=== PATIENT | male | born 1935 | race African-American/Black ===

== ENCOUNTER 2017-03-09 00:21 | Emergency (ER) | payer OTHER ==
[~2017-03-09] VITALS: Ht 172.7 cm; Wt 86.2 kg
[2017-03-09] MEDS ORDERED: NORVASC10 MG PO (00:31)
[2017-03-09] MEDS ORDERED: CLONIDINE0.1 PO (01:46)
[2017-03-09 02:21] VITALS: BP 159/82
== END 2017-03-09 02:22 | disposition home or self-care (01) ==
LOC: ER 00:21
DX: I10 Essential (primary) hypertension (principal); K59.00 Constipation, unspecified

== ENCOUNTER 2017-03-20 18:50 | Emergency (ER) | payer OTHER ==
[~2017-03-20] VITALS: Ht 172.7 cm; Wt 89.4 kg
--- NOTE | ~2017-03-20 | EKG ---
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1935 Requested By: Elio Tompkins Order Number: [id number] MD: Luis Larios Measurements Intervals [place] Rate: 78 P: 54 WV: 145 QRS: -5 QRSD: 98 T: -22 QT: 380 QTc: 433 Interpretive Statements Sinus rhythm Left ventricular hypertrophy Borderline T abnormalities No previous ECG available for comparison Electronically Signed On 03-21-2017 8:11:43 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
[~2017-03-20 18:50] MED LIST: CLONIDINE0.1 PO; NORVASC10 MG PO
[2017-03-20 18:56] VITALS: BP 124/73
[2017-03-20 19:36] LABS: HEMATOCRIT 37.9 % (42.0-52.0); HEMOGLOBIN 12.6 gm/dL (14.0-18.0); MCH 29.4 pg (26.0-34.0); MCHC 33.2 g/dL (28.0-37.0); MCV 88.7 fL (80.0-100.0); RBC 4.27 mil/uL (4.50-6.00); RDW 14.9 % (10.5-14.5); WBC 6.1 thou/uL (4.0-11.0)
[2017-03-20 19:42] LABS: ANION GAP 6 mmol/L (7-16); BUN 15 mg/dL (7-18); CALCIUM 9.4 mg/dL (8.5-10.1); CHLORIDE 106 mmol/L (98-107); CO2 30 mmol/L (21-32); CREATININE 1.7 mg/dL (0.7-1.3); GLUCOSE 135 mg/dL (74-106); POTASSIUM 3.7 mmol/L (3.5-5.1); SODIUM 142 mmol/L (136-145)
[2017-03-20 19:51] LABS: TROPONIN-I < 0.04 ng/mL (<0.06)
[2017-03-20] MEDS ORDERED: VENTOLIN HFA 1818 GM INH (20:05)
[2017-03-20] MEDS ORDERED: PROMETHAZINE/C118 ML PO (20:05)
== END 2017-03-20 20:13 | disposition home or self-care (01) ==
LOC: ER 18:50
PROVIDERS: Physician Assistant
DX: J20.8 Acute bronchitis due to other specified organisms (principal); B97.89 Other viral agents as the cause of diseases classified elsewhere; I10 Essential (primary) hypertension

== ENCOUNTER 2017-04-12 14:13 | Inpatient (IN) | payer OTHER ==
[~2017-04-12] VITALS: Ht 172.7 cm; Wt 88.5 kg
[~2017-04-12 14:13] MED LIST changes: +PROMETHAZINE/C118 ML PO; +VENTOLIN HFA 1818 GM INH
[2017-04-12 14:18] VITALS: BP 161/79
[2017-04-12 15:00] LABS: ABSOLUTE NEUTROPHILS 17.2 thou/uL (1.4-8.2); BASOPHILS 0.2 % (0.0-2.0); HEMATOCRIT 38.7 % (42.0-52.0); HEMOGLOBIN 12.7 gm/dL (14.0-18.0); MCHC 32.8 g/dL (28.0-37.0); MCV 88.5 fL (80.0-100.0); MONOCYTES 1.7 % (1.0-8.0); PLATELET COUNT 200 thou/uL (150-400); POLYS 95.1 % (36.0-66.0); RBC 4.38 mil/uL (4.50-6.00); RDW 15.1 % (10.5-14.5); WBC 18.1 thou/uL (4.0-11.0)
[2017-04-12 15:15] LABS: CALCIUM 9.6 mg/dL (8.5-10.1); CREATININE 1.8 mg/dL (0.7-1.3); POTASSIUM 3.8 mmol/L (3.5-5.1)
[2017-04-12 15:20] LABS: ALBUMIN 3.4 g/dL (3.4-5.0); TOTAL BILIRUBIN 0.4 mg/dL (<0.1-1.0); TOTAL PROTEIN 7.5 g/dL (6.4-8.2)
[2017-04-12] MEDS ORDERED: ZOCOR20 MG PO (15:21)
[2017-04-12] MEDS ORDERED: OMEPRAZOLE 20 M20 M1 PO (15:21)
[2017-04-12] MEDS ORDERED: AMLODIPINE BESY10 MG PO (15:21)
[2017-04-12 15:33] LABS: URINE BILIRUBIN 1+ (Negative); URINE BLOOD NEGATIVE (Negative); URINE CLARITY CLEAR; URINE COLOR YELLOW; URINE GLUCOSE-RANDOM* NEGATIVE (Negative); URINE KETONES NEGATIVE (Negative); URINE LEUKOCYTES NEGATIVE (Negative); URINE NITRITE NEGATIVE (Negative); URINE PROTEIN (DIPSTICK) TRACE (Negative); URINE SPECIFIC GRAVITY 1.015 (1.005-1.035)
[2017-04-12 15:37] LABS: ICTOTEST (BILI CONFIRMATORY) Negative (Negative)
[2017-04-12] MEDS ORDERED: ASPIR 8181 M1 PO (16:35)
[2017-04-12] MEDS ORDERED: DOXAZOSIN MESYLA8 MG PO (16:35)
[2017-04-12 17:09] VITALS: BP 150/86
[2017-04-12 17:26] VITALS: BP 160/80
[2017-04-12 20:00] VITALS: BP 175/88
[2017-04-13 00:12] VITALS: BP 150/80
[2017-04-13 04:00] VITALS: BP 132/70
[2017-04-13 06:43] LABS: BASOPHILS 0.3 % (0.0-2.0); EOSINOPHILS 1.1 % (0.0-3.0); HEMATOCRIT 33.7 % (42.0-52.0); HEMOGLOBIN 11.2 gm/dL (14.0-18.0); LYMPHOCYTES 14.5 % (24.0-44.0); MCH 29.4 pg (26.0-34.0); MCHC 33.3 g/dL (28.0-37.0); MCV 88.3 fL (80.0-100.0); MONOCYTES 6.7 % (1.0-8.0); PLATELET COUNT 174 thou/uL (150-400); POLYS 77.4 % (36.0-66.0); RBC 3.82 mil/uL (4.50-6.00); WBC 12.9 thou/uL (4.0-11.0)
[2017-04-13 06:53] LABS: CALCIUM 8.3 mg/dL (8.5-10.1); CREATININE 1.6 mg/dL (0.7-1.3); MAGNESIUM 1.9 mg/dL (1.8-2.4); POTASSIUM 3.5 mmol/L (3.5-5.1)
[2017-04-13 07:40] VITALS: BP 123/65
[2017-04-13 14:11] LABS: PSA TOTAL 20.4 ng/mL (0.0-4.0)
[2017-04-13 21:21] VITALS: BP 135/84
[2017-04-14 00:05] LABS: GLYCOHEMOGLOBIN (HGB A1C) 5.1 % (4.8-5.6)
[2017-04-14 05:47] VITALS: BP 133/86
[2017-04-14 06:44] LABS: ABSOLUTE NEUTROPHILS 5.4 thou/uL (1.4-8.2); BASOPHILS 0.6 % (0.0-2.0); HEMATOCRIT 34.1 % (42.0-52.0); HEMOGLOBIN 11.5 gm/dL (14.0-18.0); LYMPHOCYTES 22.8 % (24.0-44.0); MCH 29.7 pg (26.0-34.0); MCHC 33.8 g/dL (28.0-37.0); MCV 87.8 fL (80.0-100.0); MONOCYTES 6.4 % (1.0-8.0); PLATELET COUNT 179 thou/uL (150-400); POLYS 67.2 % (36.0-66.0); RBC 3.88 mil/uL (4.50-6.00); RDW 14.8 % (10.5-14.5); WBC 8.1 thou/uL (4.0-11.0)
[2017-04-14 06:58] LABS: CALCIUM 8.8 mg/dL (8.5-10.1); CREATININE 1.5 mg/dL (0.7-1.3); POTASSIUM 3.3 mmol/L (3.5-5.1)
[2017-04-14] MEDS ORDERED: CIPRO500 MG PO (09:17)
[2017-04-14 09:18] VITALS: BP 146/76
[2017-04-14 09:34] VITALS: BP 146/76
[2017-04-14 10:16] VITALS: BP 146/76
[2017-04-15 12:06] LABS: FREE PSA 1.2 ng/mL; FREE PSA RATIO 5.9 % (())
== END 2017-04-14 10:50 | disposition home or self-care (01) | DRG 871 ==
LOC: ER 14:13 → EROBS 16:10 → 4N 17:15
PROVIDERS: Family Medicine; Nurse Practitioner; Nurse Practitioner Family
DX: A41.9 Sepsis, unspecified organism (principal); N17.1 Acute kidney failure with acute cortical necrosis; N41.9 Inflammatory disease of prostate, unspecified; N40.1 Benign prostatic hyperplasia with lower urinary tract symptoms; N18.9 Chronic kidney disease, unspecified; E78.00 Pure hypercholesterolemia, unspecified; I12.9 Hypertensive chronic kidney disease with stage 1 through stage 4 chronic kidney disease, or unspecified chronic kidney disease; Z79.82 Long term (current) use of aspirin; Z79.899 Other long term (current) drug therapy
CPT/HCPCS: 10790

== ENCOUNTER 2017-05-30 14:06 | Inpatient (IN) | payer OTHER ==
[~2017-05-30] VITALS: Ht 170.2 cm; Wt 86.2 kg
--- NOTE | ~2017-05-30 | EKG ---
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1935 Requested By: Elio Tompkins Order Number: [id number] MD: Luis Larios Measurements Intervals [place] Rate: 75 P: 36 UT: 150 QRS: 9 QRSD: 95 T: -20 QT: 396 QTc: 443 Interpretive Statements Sinus rhythm Nonspecific T abnormalities, inferior leads Compared to ECG 03/20/2017 19:17:13 No significant change was found Electronically Signed On 05-30-2017 17:36:55 CDT by Luis Larios [email or web address] <ELECTRONICALLY SIGNED> By: Luis Larios MD, [facility] 05/30/17 1736 1504 1504 Luis Larios MD, [facility] /EPI
--- NOTE | ~2017-05-30 | 2DMMODE ---
[facility] [address] [place] [address] 2 D/M-MODE ECHOCARDIOGRAM Name: NIDA ARANA Room #: 220-P ADM IN M.R.#: [id number] Admission: 05/30/17 Attend Phys: Elias Lovelace Discharge: Date of : 39 Date of Service: 06/03/17 0914 Report #: [id number] THIS REPORT FOR: //name// APPROVED REPORT Study performed: 06/03/2017 08:15:54 EXAM: Comprehensive 2D, Doppler, and color-flow Echocardiogram Patient Location: Echo lab Room #: 220 Status: routine BSA: 1.97 HR: 80 bpm BP: 134/77 mmHg Rhythm: NSR/PVCs Other Information Study Quality: Adequate Indications Exertional dyspnea. Hx: HTN, HLP 2D Dimensions RVDd: 37.62 mm LVEF(%): 47.16 (>50%) IVSd: 11.54 (7-11mm) LVOT Diam: 20.62 (18-24mm) LVDd: 45.66 mm PWd: 12.15 (7-11mm) Ascending Ao: 32.22 (22-36mm) LVDs: 34.90 (25-40mm) Aortic Root: 34.66 mm Pollack's LVEF: 47.16 % Volumes Left Atrial Volume (Systole) Single Plane 4CH: 47.38 mL Single Plane 2CH: 41.53 mL LA ESV Index: 25.00 mL/m2 Aortic Valve AoV Peak Delgado.: 1.23 m/s AO Peak Gr.: 6.09 mmHg LVOT Max P.01 mmHg LVOT Max V: 0.87 m/s KARLA Vmax: 2.35 cm2 Mitral Valve E/A Ratio: 0.7 MV Decel. Time: 231.46 ms [facility] [place] [address] 2 D/M-MODE ECHOCARDIOGRAM Name: NIDA ARANA Room #: 220-P [facility] IN .R.#: [id number] Admission: 05/30/17 Attend Phys: Elias Lovelace Discharge: Date of : 39 Date of Service: 06/03/17 0914 Report #: [id number] MV E Max Delgado.: 0.68 m/s MV A Delgado.: 1.01 m/s MV PHT: 67.12 ms IVRT: 115.34 ms Pulmonary Valve PV Peak Delgado.: 0.95 m/s PV Peak Gr.: 3.62 mmHg Pulmonary Vein P Vein S: 0.54 m/s P Vein D: 0.34 m/s P Vein S/D Ratio: 1.59 Tricuspid Valve TR Peak Delgado.: 2.54 m/s RAP Estimate: 5.00 mmHg TR Peak Gr.: 25.73 mmHg PA Pressure: 31.00 mmHg Left Ventricle The left ventricle is normal size. There is normal LV segmental wall motion. Mild concentric left ventricular hypertrophy. Left ventricular systolic function is normal. LVEF is 50-55%. Mild diastolic dysfunction is present (impaired relaxation pattern). Right Ventricle The right ventricle is normal size. The right ventricular systolic function is normal. Atria The left atrium size is normal. The right atrium size is normal. Aortic Valve The aortic valve is normal in structure. No aortic regurgitation is present. There is no aortic valvular stenosis. Mitral Valve The mitral valve is normal in structure. Mild mitral regurgitation. No evidence of mitral valve stenosis. Tricuspid Valve The tricuspid valve is normal in structure. Mild tricuspid regurgitation. Estimated PAP is 30-35mmHg. Pulmonic Valve [address] [address] 2 D/M-MODE ECHOCARDIOGRAM Name: NIDA ARANA Room #: 220-P [facility] IN M.R.#: [id number] Admission: 05/30/17 Attend Phys: Elias Lovelace Discharge: Date of : 39 Date of Service: 06/03/17 0914 Report #: [id number] The pulmonary valve is normal in structure. Mild to moderate pulmonic regurgitation. Great Vessels The aortic root is normal in size. The ascending aorta is normal in size. IVC is normal in size and collapses >50% with inspiration. Pericardium There is no pericardial effusion. <Conclusion> Left ventricular systolic function is normal. There is normal LV segmental wall motion. LVEF is 50-55%. Mild diastolic dysfunction The aortic valve is normal in structure. No aortic regurgitation or stenosis The mitral valve is normal in structure. Mild mitral regurgitation. Mild tricuspid regurgitation. Estimated pulmonary artery pressure is 30-35mmHg. There is no pericardial effusion. <ELECTRONICALLY SIGNED> By: Luis Larios MD, FACC 06/03/17913 3 3 Luis Larios MD, FACC /INF
[~2017-05-30 14:06] MED LIST changes: +AMLODIPINE BESY10 MG PO; +ASPIR 8181 M1 PO; +CIPRO500 MG PO; +DOXAZOSIN MESYLA8 MG PO; +OMEPRAZOLE 20 M20 M1 PO; +ZOCOR20 MG PO
[2017-05-30 14:50] VITALS: BP 149/86
[2017-05-30 15:23] LABS: ABSOLUTE NEUTROPHILS 5.2 thou/uL (1.4-8.2); BASOPHILS 0.4 % (0.0-2.0); EOSINOPHILS 1.8 % (0.0-3.0); HEMATOCRIT 33.5 % (42.0-52.0); HEMOGLOBIN 11.2 gm/dL (14.0-18.0); LYMPHOCYTES 17.5 % (24.0-44.0); MCH 29.7 pg (26.0-34.0); MCHC 33.4 g/dL (28.0-37.0); MCV 88.9 fL (80.0-100.0); MONOCYTES 6.1 % (1.0-8.0); PLATELET COUNT 179 thou/uL (150-400); POLYS 74.2 % (36.0-66.0); RBC 3.77 mil/uL (4.50-6.00); RDW 14.7 % (10.5-14.5); WBC 7.1 thou/uL (4.0-11.0)
[2017-05-30 15:30] LABS: ANION GAP 6 mmol/L (7-16); BUN 20 mg/dL (7-18); CALCIUM 9.5 mg/dL (8.5-10.1); CHLORIDE 106 mmol/L (98-107); CO2 29 mmol/L (21-32); CREATININE 1.6 mg/dL (0.7-1.3); GLUCOSE 107 mg/dL (74-106); POTASSIUM 4.5 mmol/L (3.5-5.1); SODIUM 141 mmol/L (136-145)
[2017-05-30 15:39] LABS: URINE BILIRUBIN NEGATIVE (Negative); URINE BLOOD NEGATIVE (Negative); URINE CLARITY CLEAR; URINE COLOR YELLOW; URINE GLUCOSE-RANDOM* NEGATIVE (Negative); URINE KETONES NEGATIVE (Negative); URINE LEUKOCYTES NEGATIVE (Negative); URINE NITRITE NEGATIVE (Negative); URINE PROTEIN (DIPSTICK) NEGATIVE (Negative); URINE SPECIFIC GRAVITY 1.015 (1.005-1.035); URINE UROBILINOGEN 0.2 E.U./dl (0.2-1.0)
[2017-05-30 15:39] LABS: ALBUMIN 3.2 g/dL (3.4-5.0); LIPASE 68 U/L (73-393); SGOT 16 U/L (15-37); SGPT 19 U/L (30-65); TOTAL BILIRUBIN 0.2 mg/dL (<0.1-1.0); TROPONIN-I < 0.04 ng/mL (<0.06)
[2017-05-30 17:44] VITALS: BP 149/86
[2017-05-30 21:38] VITALS: BP 161/68
[2017-05-30 22:01] VITALS: BP 149/84
[2017-05-31 00:19] VITALS: BP 144/83
[2017-05-31 04:20] VITALS: BP 134/72
[2017-05-31 05:56] LABS: HEMATOCRIT 30.8 % (42.0-52.0); HEMOGLOBIN 10.4 gm/dL (14.0-18.0); MCH 30.2 pg (26.0-34.0); MCHC 33.9 g/dL (28.0-37.0); MCV 89.1 fL (80.0-100.0); RBC 3.46 mil/uL (4.50-6.00); WBC 7.3 thou/uL (4.0-11.0)
[2017-05-31 06:13] LABS: ALBUMIN 2.8 g/dL (3.4-5.0); CALCIUM 9.1 mg/dL (8.5-10.1); CREATININE 1.6 mg/dL (0.7-1.3); PHOSPHORUS 3.5 mg/dL (2.5-4.9); POTASSIUM 3.9 mmol/L (3.5-5.1)
[2017-05-31 07:11] VITALS: BP 120/69
[2017-05-31 19:25] VITALS: BP 153/77
[2017-06-01 03:37] VITALS: BP 143/77
[2017-06-01 07:04] VITALS: BP 144/77
[2017-06-01 11:33] LABS: CHOLESTEROL 153 mg/dL (<200); HDL CHOLESTEROL 66 mg/dL (>40); LDL CHOLESTEROL 78 mg/dL (<100); SERUM ASSESSMENT Clear; TC:HDL 2.3 Ratio (Not establshd); TRIGLYCERIDE 47 mg/dL (<150); VLDL 9 mg/dL (<40)
[2017-06-01 16:10] VITALS: BP 122/77
[2017-06-01 20:00] VITALS: BP 117/67
[2017-06-02 07:05] VITALS: BP 130/78
[2017-06-02 09:07] LABS: ALBUMIN 3.1 g/dL (3.4-5.0); CALCIUM 9.3 mg/dL (8.5-10.1); CREATININE 1.9 mg/dL (0.7-1.3); PHOSPHORUS 3.8 mg/dL (2.5-4.9); POTASSIUM 3.8 mmol/L (3.5-5.1)
[2017-06-02 20:00] VITALS: BP 134/77
[2017-06-03 08:57] VITALS: BP 116/73
[2017-06-03] MEDS ORDERED: CIPRO500 MG PO (10:19)
[2017-06-03] MEDS ORDERED: FLAGYL500 MG PO (10:19)
[2017-06-03] MEDS ORDERED: TOPROL XL25 MG PO (10:20)
[2017-06-03 11:41] VITALS: BP 116/73
== END 2017-06-03 12:26 | disposition home or self-care (01) | DRG 377 ==
LOC: ER 14:06 → EROBS 16:57 → 4E 16:57 → SICU 06-01 16:00 → ENTRNSPT 06-03 12:08 → EDTRNSPTSTS 06-03 12:09 → SICU 06-03 12:26
PROVIDERS: Hospitalist; Physician Assistant
DX: K57.93 Diverticulitis of intestine, part unspecified, without perforation or abscess with bleeding (principal); E43 Unspecified severe protein-calorie malnutrition; I50.30 Unspecified diastolic (congestive) heart failure; E78.00 Pure hypercholesterolemia, unspecified; K52.9 Noninfective gastroenteritis and colitis, unspecified; I11.0 Hypertensive heart disease with heart failure; N40.0 Benign prostatic hyperplasia without lower urinary tract symptoms; N18.9 Chronic kidney disease, unspecified; Z79.82 Long term (current) use of aspirin; Z79.899 Other long term (current) drug therapy
CPT/HCPCS: 10084; 15002

== ENCOUNTER 2017-06-03 15:45 | Inpatient (IN) | payer OTHER ==
[~2017-06-03] VITALS: Ht 170.2 cm; Wt 86.6 kg
--- NOTE | ~2017-06-03 | EKG ---
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 06/04/17 0905 1548 1548 Luis Larios MD, [facility] /EPI
[~2017-06-03 15:45] MED LIST changes: +FLAGYL500 MG PO; +TOPROL XL25 MG PO
[2017-06-03 15:53] VITALS: BP 136/88
[2017-06-03 16:10] LABS: ABSOLUTE NEUTROPHILS 5.2 thou/uL (1.4-8.2); BASOPHILS 0.3 % (0.0-2.0); EOSINOPHILS 1.9 % (0.0-3.0); HEMATOCRIT 31.8 % (42.0-52.0); HEMOGLOBIN 10.6 gm/dL (14.0-18.0); LYMPHOCYTES 20.8 % (24.0-44.0); MCH 29.6 pg (26.0-34.0); MCHC 33.4 g/dL (28.0-37.0); MCV 88.6 fL (80.0-100.0); PLATELET COUNT 155 thou/uL (150-400); RBC 3.59 mil/uL (4.50-6.00); RDW 14.7 % (10.5-14.5); WBC 7.5 thou/uL (4.0-11.0)
[2017-06-03 16:15] LABS: ANION GAP 10 mmol/L (7-16); BUN 19 mg/dL (7-18); CALCIUM 9.2 mg/dL (8.5-10.1); CHLORIDE 107 mmol/L (98-107); CO2 25 mmol/L (21-32); CREATININE 1.9 mg/dL (0.7-1.3); GLUCOSE 135 mg/dL (74-106); POTASSIUM 3.9 mmol/L (3.5-5.1); SODIUM 142 mmol/L (136-145)
[2017-06-03 16:24] LABS: TROPONIN-I < 0.04 ng/mL (<0.06)
[2017-06-03 16:25] LABS: INR 1.2; PROTIME 11.5 Seconds (9.3-11.4)
[2017-06-03 16:43] LABS: D-DIMER 14.44 ug/mLFEU (0.19-0.50)
[2017-06-03 20:47] VITALS: BP 150/88
[2017-06-03 22:36] VITALS: BP 159/89
[2017-06-03 23:02] VITALS: BP 150/89
[2017-06-04] VITALS (7 sets, daily range): BP systolic 115–149; BP diastolic 75–92
[2017-06-05] VITALS (8 sets, daily range): BP systolic 86–150; BP diastolic 52–85
[2017-06-05 04:03] LABS: HEMATOCRIT 30.2 % (42.0-52.0); HEMOGLOBIN 10.2 gm/dL (14.0-18.0); MCH 30.3 pg (26.0-34.0); MCHC 33.8 g/dL (28.0-37.0); MCV 89.6 fL (80.0-100.0); RBC 3.37 mil/uL (4.50-6.00); RDW 15.1 % (10.5-14.5); WBC 7.1 thou/uL (4.0-11.0)
[2017-06-06 04:34] LABS: HEMATOCRIT 32.1 % (42.0-52.0); HEMOGLOBIN 10.7 gm/dL (14.0-18.0); MCH 29.9 pg (26.0-34.0); MCHC 33.5 g/dL (28.0-37.0); MCV 89.3 fL (80.0-100.0); RBC 3.59 mil/uL (4.50-6.00); RDW 15.1 % (10.5-14.5); WBC 6.8 thou/uL (4.0-11.0)
[2017-06-06 05:31] VITALS: BP 154/91
[2017-06-06 08:02] VITALS: BP 147/88
[2017-06-06 12:15] VITALS: BP 128/81; BP 133/86
[2017-06-06 12:16] VITALS: BP 92/60
[2017-06-06 16:14] VITALS: BP 144/89
[2017-06-06 19:56] VITALS: BP 135/87
[2017-06-07 04:46] VITALS: BP 128/81
[2017-06-07 05:00] LABS: HEMATOCRIT 31.3 % (42.0-52.0); HEMOGLOBIN 10.5 gm/dL (14.0-18.0); MCH 29.9 pg (26.0-34.0); MCHC 33.5 g/dL (28.0-37.0); MCV 89.3 fL (80.0-100.0); RBC 3.5 mil/uL (4.50-6.00); RDW 14.8 % (10.5-14.5); WBC 6.7 thou/uL (4.0-11.0)
[2017-06-07 08:00] VITALS: BP 146/82
[2017-06-07] MEDS ORDERED: ELIQUIS5 MG PO (08:04)
[2017-06-07 11:00] VITALS: BP 135/76
[2017-06-07 14:23] LABS: POTASSIUM 4.2 mmol/L (3.5-5.1)
[2017-06-07 16:00] VITALS: BP 127/80
[2017-06-07 19:55] VITALS: BP 120/61
[2017-06-08 04:36] VITALS: BP 124/67
[2017-06-08 09:06] VITALS: BP 131/72
[2017-06-08 12:37] VITALS: BP 110/64
[2017-06-08 19:45] VITALS: BP 123/59
[2017-06-09 04:25] VITALS: BP 114/61
[2017-06-09 07:26] VITALS: BP 113/66
[2017-06-09 12:03] VITALS: BP 109/61
[2017-06-09 15:21] VITALS: BP 122/66
[2017-06-09 20:10] VITALS: BP 112/68
[2017-06-10 05:15] VITALS: BP 133/78
[2017-06-10 08:18] VITALS: BP 126/69
[2017-06-10 11:15] VITALS: BP 126/69
[2017-06-10 17:27] VITALS: BP 126/69
[2017-06-10 18:13] VITALS: BP 141/68
== END 2017-06-10 18:55 | disposition home or self-care (01) | DRG 175 ==
LOC: ER 15:45 → EROBS 20:06 → 2N 20:06
PROVIDERS: Emergency Medicine; Hospitalist
DX: I26.99 Other pulmonary embolism without acute cor pulmonale (principal); K57.93 Diverticulitis of intestine, part unspecified, without perforation or abscess with bleeding; I47.2 Ventricular tachycardia; E78.00 Pure hypercholesterolemia, unspecified; I12.9 Hypertensive chronic kidney disease with stage 1 through stage 4 chronic kidney disease, or unspecified chronic kidney disease; N40.0 Benign prostatic hyperplasia without lower urinary tract symptoms; N28.1 Cyst of kidney, acquired; E78.5 Hyperlipidemia, unspecified; N18.3 Chronic kidney disease, stage 3 (moderate); D64.9 Anemia, unspecified; Z79.82 Long term (current) use of aspirin; Z79.899 Other long term (current) drug therapy; Z85.46 Personal history of malignant neoplasm of prostate
CPT/HCPCS: 10081

== ENCOUNTER 2017-06-25 20:26 | Inpatient (IN) | payer OTHER ==
[~2017-06-25] VITALS: Ht 172.7 cm; Wt 84.8 kg
--- NOTE | ~2017-06-25 | P ---
[facility] [place] [address] PROCEDURE REPORT Name: NIDA ARANA Room #: 406-P [facility] IN M.R.#: [id number] Admission: 06/25/17 Attend Phys: Blayne Almodovar MD Discharge: Date of : 37 Report #: [id number] THIS REPORT FOR: //name// CC: Juan C Hays BRIEF HISTORY: The patient is an 82-year-old male who has had rectal bleeding, which has worsened since he started Eliquis. PREOPERATIVE DIAGNOSIS: Rectal bleeding. POSTOPERATIVE DIAGNOSES: 1. Malignant appearing mass lesion, distal descending colon at 50 cm. 2. Small rectal polyp. MEDICATIONS: Deep sedation with propofol per Anesthesia. SPECIMEN: 1. Biopsies of rectal mass. 2. Rectal polyp. ESTIMATED BLOOD LOSS: 3 mL. PROCEDURE: Colonoscopy to the distal descending colon with biopsy and injection of Nancy ink. FINDINGS: Prior to propofol sedation, procedure of colonoscopy discussed with the patient as well as potential risks and its complications. He indicates he understands and desires to proceed. With the patient in the left lateral decubitus position, digital examination was completed and revealed no abnormalities. Subsequently, the Olympus video colonoscope was introduced into the rectum and advanced under direct vision with minimal difficulty. The scope was advanced without difficulty into what was felt to be the distal descending colon at which point there was a malignant appearing mass lesion, which filled the lumen. It was completely circumferential. A very small lumen could be seen centrally. However, the scope would not pass through the lumen of the mass. It was friable, but not actively bleeding. Multiple biopsies were obtained. In addition, Nancy ink injections were placed with two injections placed just distal to the lesion. As the scope was withdrawn, the prep was noted to be excellent. The mucosa was in normal limits, normal vascular pattern and normal light reflex. The scope was withdrawn from the rectum and a small polyp was seen in the distal rectum removed by biopsy. Upon retroflexion, no additional lesions were seen. The scope was withdrawn. The patient tolerated the procedure well. [address] [address] PROCEDURE REPORT Name: NIDA ARANA Room #: 406-P [facility] IN M.R.#: [id number] Admission: 06/25/17 Attend Phys: Blayne Almodovar MD Discharge: Date of : 39 Report #: [id number] DISPOSITION: The patient with findings of a mass lesion, which was an obstructing mass lesion which is partially obstructing the descending colon. We were unable to advance the scope beyond the mass lesion. We will follow up on biopsies, but the patient is going to need surgical intervention, so we will ask General Surgery consultation. Also since a complete colonoscopy could not be done due to obstruction, he should return for a total colonoscopy after he recovers from his surgery. <ELECTRONICALLY SIGNED> By: Juan C Serrano MD 07/04/17 1155 1257 2359 Juan C Serrano MD /nt
[~2017-06-25 20:26] MED LIST changes: +ELIQUIS5 MG PO
[2017-06-25 20:31] VITALS: BP 163/91
[2017-06-25] MEDS ORDERED: GERITOL COMPLE1 EAC2 PO (20:38)
[2017-06-25 20:55] LABS: URINE BILIRUBIN NEGATIVE (Negative); URINE BLOOD NEGATIVE (Negative); URINE CLARITY CLEAR; URINE COLOR YELLOW; URINE GLUCOSE-RANDOM* NEGATIVE (Negative); URINE KETONES NEGATIVE (Negative); URINE LEUKOCYTES-REFLEX NEGATIVE (Negative); URINE NITRITE-REFLEX NEGATIVE (Negative); URINE PROTEIN (DIPSTICK) NEGATIVE (Negative); URINE SPECIFIC GRAVITY 1.025 (1.005-1.035); URINE UROBILINOGEN 0.2 E.U./dl (0.2-1.0)
[2017-06-25 21:03] LABS: ABSOLUTE NEUTROPHILS 4.7 thou/uL (1.4-8.2); BASOPHILS 0.7 % (0.0-2.0); EOSINOPHILS 2.2 % (0.0-3.0); HEMATOCRIT 27.7 % (42.0-52.0); HEMOGLOBIN 9.3 gm/dL (14.0-18.0); LYMPHOCYTES 24.3 % (24.0-44.0); MCH 30.6 pg (26.0-34.0); MCHC 33.7 g/dL (28.0-37.0); MONOCYTES 6.8 % (1.0-8.0); PLATELET COUNT 197 thou/uL (150-400); RBC 3.05 mil/uL (4.50-6.00); RDW 15.2 % (10.5-14.5); WBC 7.1 thou/uL (4.0-11.0)
[2017-06-25 21:16] LABS: ANION GAP 5 mmol/L (7-16); BUN 21 mg/dL (7-18); CHLORIDE 109 mmol/L (98-107); CO2 28 mmol/L (21-32); CREATININE 1.6 mg/dL (0.7-1.3); GLUCOSE 95 mg/dL (74-106); POTASSIUM 4.4 mmol/L (3.5-5.1); SODIUM 142 mmol/L (136-145)
[2017-06-25 21:23] LABS: ALBUMIN 3.1 g/dL (3.4-5.0); SGOT 21 U/L (15-37); SGPT 21 U/L (30-65); TOTAL BILIRUBIN < 0.1 mg/dL (<0.1-1.0); TOTAL PROTEIN 6.7 g/dL (6.4-8.2)
[2017-06-25 21:27] LABS: PROTIME 10.4 Seconds (9.3-11.4)
[2017-06-25 22:16] VITALS: BP 152/65
[2017-06-26 03:27] LABS: HEMATOCRIT 25.4 % (42.0-52.0); HEMOGLOBIN 8.6 gm/dL (14.0-18.0)
[2017-06-26 04:26] VITALS: BP 144/79
[2017-06-26 07:46] VITALS: BP 135/66
[2017-06-26 09:29] LABS: HEMOGLOBIN 8.4 gm/dL (14.0-18.0)
[2017-06-26 15:11] LABS: HEMATOCRIT 25.8 % (42.0-52.0); HEMOGLOBIN 8.6 gm/dL (14.0-18.0)
[2017-06-26 16:57] VITALS: BP 146/64
[2017-06-26 20:19] VITALS: BP 129/75
[2017-06-26 21:15] LABS: HEMATOCRIT 24.7 % (42.0-52.0); HEMOGLOBIN 8.2 gm/dL (14.0-18.0)
[2017-06-27 05:15] VITALS: BP 162/85
[2017-06-27 05:34] LABS: CALCIUM 8.6 mg/dL (8.5-10.1); CREATININE 1.5 mg/dL (0.7-1.3); MAGNESIUM 1.8 mg/dL (1.8-2.4)
[2017-06-27 05:42] LABS: % SATURATION 24 % (20-39); IRON 47 ug/dL (65-175); TIBC 200 ug/dL (250-450)
[2017-06-27 07:35] VITALS: BP 149/86
[2017-06-27 16:30] VITALS: BP 168/85
[2017-06-27 20:00] VITALS: BP 132/71
[2017-06-28 04:00] VITALS: BP 150/69
[2017-06-28 06:02] LABS: HEMATOCRIT 24.3 % (42.0-52.0); HEMOGLOBIN 8.1 gm/dL (14.0-18.0)
[2017-06-28 08:59] VITALS: BP 155/77
[2017-06-28 17:38] VITALS: BP 154/82
[2017-06-28 19:40] VITALS: BP 120/64
[2017-06-28 23:54] VITALS: BP 150/83
[2017-06-29 04:33] VITALS: BP 160/83
[2017-06-29 07:54] VITALS: BP 158/79
[2017-06-29 11:20] VITALS: BP 165/76
[2017-06-29 20:27] VITALS: BP 179/79
[2017-06-30 07:15] VITALS: BP 169/82
[2017-06-30 19:53] VITALS: BP 171/84
[2017-07-01 07:29] VITALS: BP 169/87
[2017-07-01 10:29] VITALS: BP 169/87
[2017-07-01 10:44] LABS: HEMATOCRIT 28.3 % (42.0-52.0); HEMOGLOBIN 9.4 gm/dL (14.0-18.0)
[2017-07-01 10:53] LABS: CALCIUM 9.2 mg/dL (8.5-10.1); CREATININE 1.6 mg/dL (0.7-1.3); POTASSIUM 3.8 mmol/L (3.5-5.1)
[2017-07-01 10:59] LABS: ALBUMIN 3.3 g/dL (3.4-5.0); TOTAL BILIRUBIN 0.4 mg/dL (<0.1-1.0); TOTAL PROTEIN 6.8 g/dL (6.4-8.2)
[2017-07-01 16:57] VITALS: BP 149/72
[2017-07-01 20:00] VITALS: BP 143/75
[2017-07-02 04:00] VITALS: BP 156/76
[2017-07-02 06:16] LABS: HEMATOCRIT 25.1 % (42.0-52.0); HEMOGLOBIN 8.4 gm/dL (14.0-18.0); MCH 30.6 pg (26.0-34.0); MCHC 33.6 g/dL (28.0-37.0); MCV 90.9 fL (80.0-100.0); RBC 2.76 mil/uL (4.50-6.00); RDW 15.2 % (10.5-14.5); WBC 11.7 thou/uL (4.0-11.0)
[2017-07-02 06:23] LABS: CALCIUM 8.2 mg/dL (8.5-10.1); CREATININE 1.7 mg/dL (0.7-1.3); POTASSIUM 4.2 mmol/L (3.5-5.1)
[2017-07-02 07:31] VITALS: BP 153/81
[2017-07-02 16:20] VITALS: BP 170/74
[2017-07-02 20:00] VITALS: BP 124/70
[2017-07-03 05:00] VITALS: BP 171/92
[2017-07-03 06:01] LABS: HEMATOCRIT 25.9 % (42.0-52.0); HEMOGLOBIN 8.5 gm/dL (14.0-18.0); MCH 29.7 pg (26.0-34.0); MCHC 32.7 g/dL (28.0-37.0); MCV 90.7 fL (80.0-100.0); RBC 2.86 mil/uL (4.50-6.00); WBC 12.4 thou/uL (4.0-11.0)
[2017-07-03 06:10] LABS: CALCIUM 8.8 mg/dL (8.5-10.1); CREATININE 1.5 mg/dL (0.7-1.3)
[2017-07-03 08:18] VITALS: BP 169/88
[2017-07-03 17:19] VITALS: BP 134/76
[2017-07-03 20:05] VITALS: BP 176/97
[2017-07-04 03:53] VITALS: BP 155/90
[2017-07-04 08:00] VITALS: BP 189/95
[2017-07-04 14:33] LABS: ABSOLUTE NEUTROPHILS 9.5 thou/uL (1.4-8.2); BASOPHILS 0.1 % (0.0-2.0); EOSINOPHILS 0.3 % (0.0-3.0); HEMATOCRIT 27.5 % (42.0-52.0); HEMOGLOBIN 9.1 gm/dL (14.0-18.0); LYMPHOCYTES 5.1 % (24.0-44.0); MCH 29.7 pg (26.0-34.0); MCHC 33.1 g/dL (28.0-37.0); MCV 89.9 fL (80.0-100.0); MONOCYTES 5.5 % (1.0-8.0); PLATELET COUNT 189 thou/uL (150-400); RBC 3.06 mil/uL (4.50-6.00); RDW 15.1 % (10.5-14.5); WBC 10.7 thou/uL (4.0-11.0)
[2017-07-04 14:46] LABS: ALBUMIN 2.8 g/dL (3.4-5.0); CREATININE 1.4 mg/dL (0.7-1.3); MAGNESIUM 2.2 mg/dL (1.8-2.4); POTASSIUM 3.8 mmol/L (3.5-5.1); TOTAL BILIRUBIN 0.3 mg/dL (<0.1-1.0)
[2017-07-04 15:33] VITALS: BP 189/95
[2017-07-04 20:31] VITALS: BP 153/85
[2017-07-05 05:18] VITALS: BP 163/77
[2017-07-05 07:03] VITALS: BP 177/89
[2017-07-05 14:39] VITALS: BP 177/89
[2017-07-05 16:10] VITALS: BP 154/76
[2017-07-05 20:19] VITALS: BP 159/94
[2017-07-06 07:30] LABS: HEMOGLOBIN 8.2 gm/dL (14.0-18.0); MCH 31.8 pg (26.0-34.0); MCHC 35.7 g/dL (28.0-37.0); MCV 89.1 fL (80.0-100.0); RBC 2.58 mil/uL (4.50-6.00); RDW 14.9 % (10.5-14.5); WBC 5.3 thou/uL (4.0-11.0)
[2017-07-06 07:39] LABS: CALCIUM 8.7 mg/dL (8.5-10.1); CREATININE 1.4 mg/dL (0.7-1.3); POTASSIUM 3.7 mmol/L (3.5-5.1)
[2017-07-06 07:45] VITALS: BP 171/90
[2017-07-06 13:40] VITALS: BP 173/96
[2017-07-06 20:52] VITALS: BP 145/83
[2017-07-07 08:30] VITALS: BP 153/91
[2017-07-07] MEDS ORDERED: FLOMAX0.4 MG PO (12:59)
[2017-07-07] MEDS ORDERED: TRAMADOL 50 MG50 MG PO (13:00)
[2017-07-07 13:22] VITALS: BP 177/89
== END 2017-07-07 14:30 | disposition home or self-care (01) | DRG 393 ==
LOC: ER 20:26 → 4N 21:42 → EROBS 21:42 → 4N 22:27 → SICU 06-29 16:44 → 4N 07-01 16:24 → ENTRNSPT 07-05 16:11 → SICU 07-05 16:30
PROVIDERS: Anesthesiology; Hospitalist; Internal Medicine Gastroenterology; Nurse Practitioner Acute Care; Nurse Practitioner Family; Registered Nurse; Surgery
PROC: 0DBP8ZX Excision of Rectum, Via Natural or Artificial Opening Endoscopic, Diagnostic (ICD-10-PCS; principal; 2017-06-28)
PROC: 0DBM8ZX Excision of Descending Colon, Via Natural or Artificial Opening Endoscopic, Diagnostic (ICD-10-PCS; principal; 2017-06-28)
DX: K63.89 Other specified diseases of intestine (principal); E43 Unspecified severe protein-calorie malnutrition; D62 Acute posthemorrhagic anemia; E78.5 Hyperlipidemia, unspecified; N40.0 Benign prostatic hyperplasia without lower urinary tract symptoms; N18.3 Chronic kidney disease, stage 3 (moderate); F80.82 Social pragmatic communication disorder; K62.1 Rectal polyp; I12.9 Hypertensive chronic kidney disease with stage 1 through stage 4 chronic kidney disease, or unspecified chronic kidney disease; Z85.46 Personal history of malignant neoplasm of prostate; Z92.3 Personal history of irradiation; Z79.899 Other long term (current) drug therapy; Z79.82 Long term (current) use of aspirin; Z79.01 Long term (current) use of anticoagulants; Z86.711 Personal history of pulmonary embolism
CPT/HCPCS: 10790; 15002; 50010; 50101; 50221; 50249; 50290; 50386; 50455; 50555; 50558; 50740; 50804; 51398; 51412; 51489; 52265; 53307; 53310; 54022; 54118; 56462; 56525; 56526; 56530; 56753; 57092; 62110; 62900; 70005

== ENCOUNTER → 2017-09-25 | Outpatient (CLI) | payer OTHER ==
[~2017-09-25] MED LIST changes: +FLOMAX0.4 MG PO; +GERITOL COMPLE1 EAC2 PO; +TRAMADOL 50 MG50 MG PO
[2017-09-25 10:11] LABS: CREATININE 1.9 mg/dL (0.7-1.3)
== END ==
LOC: NUC 09:06
PROVIDERS: Urology
DX: C61 Malignant neoplasm of prostate (principal); N28.1 Cyst of kidney, acquired; M25.78 Osteophyte, vertebrae; I70.0 Atherosclerosis of aorta; I12.9 Hypertensive chronic kidney disease with stage 1 through stage 4 chronic kidney disease, or unspecified chronic kidney disease; E78.5 Hyperlipidemia, unspecified; N18.3 Chronic kidney disease, stage 3 (moderate)

== ENCOUNTER → 2018-06-06 | Outpatient (CLI) | payer OTHER ==
[~2018-06-06] VITALS: Ht 172.7 cm; Wt 91.2 kg
[~2018-06-06] MED LIST changes: +METOPROLOL SUCC50 MG PO; +VITAMIN D1000 UNI1 PO
--- NOTE | ~2018-06-06 | O ---
[facility] [place] [address] OPERATIVE REPORT Name: NIDA ARANA [id number] Admission: 06/06/18 ������������������ Attend Phys: Juan C Serrano MD Discharge: ������������������ Date of : 39 Report #: [id number] THIS REPORT FOR: //name// CC: Florentin De La Torre DATE OF SERVICE: 06/06/2018 BRIEF HISTORY: The patient is an 83-year-old male with history of colon cancer and he was found to have his colon cancer, which was obstructing the colon last June. The obstructing mass lesion, which would not allow scope to pass in the proximal colon was felt to be in the distal descending colon. 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 He presents now for colonoscopy as his colonoscopy was incomplete last year due to the obstructing lesion. PREOPERATIVE DIAGNOSIS: History of colon cancer. POSTOPERATIVE DIAGNOSES: 1. Mass lesion, mid ascending colon. 2. Colon polyps. MEDICATIONS: Deep sedation with propofol per anesthesia. SPECIMENS: 1. Cecal polyp. 2. Biopsy of mass lesion, mid ascending colon. 3. Flat polyp from 20 cm. ESTIMATED BLOOD LOSS: 3 mL. PROCEDURE: Colonoscopy to cecum and terminal ileum with snare polypectomy, biopsy and saline and Nancy ink injection. FINDINGS: Prior to propofol sedation, procedure of colonoscopy discussed with the patient as well as potential risks and its complications. He indicates he understands and desires to proceed. DESCRIPTION OF PROCEDURE: With the patient in left lateral decubitus position, digital examination was completed, which revealed no abnormalities. Subsequently, the Olympus video colonoscope was introduced in the rectum, advanced under direct vision to the cecum, done with minimal difficulty. The cecum was identified by the ileocecal valve and the appendiceal orifice. I was able to visualize the distal segment of the terminal ileum, which was inspected and noted to be unremarkable. At that point, the scope was slowly withdrawn and [facility] [address] [place] [address] OPERATIVE REPORT Name: NIDA ARANA Edd Room #: REG [facility].#: [id number] Admission: 06/06/18 ������������������ Attend Phys: Juan C Serrano MD Discharge: ������������������ Date of : 39 Report #: [id number] careful circumferential views were obtained. In the cecum, there was a diminutive polyp that was removed with a biopsy forceps. The scope was retroflexed in the ascending colon and a polypoid lesion was seen. It was felt to be a 2.5-3 cm in length and appeared to be only had tripped on the edge of a fold. We initially consider removing this in a piecemeal fashion with snare polypectomy. However, after we elevated the lesion, it was larger than we initially anticipated. It was at least 2.5-3 cm in length and at least 2 cm or more in width. It was also bulkier than expected. After careful inspection, it was felt the lesion was too large to be safely removed endoscopically. Therefore, multiple biopsies were obtained and Nancy ink injections were placed on the lateral aspect of the mass lesion. The scope was further withdrawn and no additional mucosal abnormalities were seen until the scope was drawn into the sigmoid colon at about 20 cm, a flat 5 mm polyp was seen by cold snare polypectomy and recovered. Scope was further withdrawn and just distal to that area of the anastomotic line was seen. It was completely healed and there is no evidence of neoplastic disease of the anastomosis. Examination of the rectum on end view as well as retroflexed views did not reveal any other lesions. Scope was withdrawn. The patient tolerated the procedure well. CONDITION OF THE PATIENT UPON DISCHARGE: Following procedure, the patient drowsy. He will be discharged home when fully ambulatory. INSTRUCTIONS TO THE PATIENT AND FAMILY AT THE TIME OF DISCHARGE: We discussed further with the patient. This lesion is quite large and we are not able to remove it endoscopically today. Unfortunately, he will likely require further surgery. Another option would be visiting a tertiary center to consider endoscopic mucosal resection. However, if this lesion is malignant on biopsies, that may not be feasible. We will discuss further with the patient when biopsies available. ��������������������������������������������� ���������������������������������������� By: ��������������������������������������������� 1138 0251 Juan C Serrano MD /mandi
--- NOTE | 2018-06-09 16:05 | PATH ---
[facility] [address] [address] PATHOLOGY RPT PROCEDURE Name: NIDA ARANA Room #: REG [facility] M.Evan.#: [id number] ������������������ Admission: 06/06/18 ������������������ Date of : 39 Discharge: Report #: [id number] Path Case #: [id number] [facility] Accession Number: [id number] . 01 Material submitted: . PART A: cecum - BX POLYP AT CECUM PART B: colon - BX MID ASCENDING COLON MASS. Modifiers: mid, ascending PART C: colon - POLYP AT 20CM . 01 Clinical history: . Pre-OP DX: HX colon cancer Post-OP DX: Colon polyps, colon mass . 02 Diagnosis: A. Polyp, at cecum, endoscopic biopsy: - Compatible with an inflamed hyperplastic polyp. - Negative for dysplasia. . B. Tissue designated as "mass at ascending colon", endoscopic biopsy: - All fragments showing superficially sampled tubulovillous adenoma. - Negative for high grade dysplasia or malignancy. . C. Polyp, at 20 cm, endoscopic biopsy: - Tubular adenoma. - Negative for high grade dysplasia. (IUV/db; 06/09/2018) LBQ/06/09/2018 . 02 Electronically signed: . Penny Sherman MD, Pathologist NPI- [id number] . 01 Gross description: . A. Received in formalin labeled "Nida Arana, BX polyp at cecum," is a single segment of dorsey soft tissue measuring 0.5 cm in maximum dimension. The specimen is entirely submitted in cassette A1. . B. Received in formalin labeled "Nida Arana, BX mid ascending colon mass," are multiple segments of dorsey soft tissue measuring 0.9 x 0.6 x 0.1 cm in aggregate dimensions. The specimen is filtered and entirely submitted in cassette B1. . C. Received in formalin labeled "Nida Arana, polyp at 20 cm," is a 0.5 x 0.4 x 0.4 cm polypoid piece of dorsey soft tissue. The margin is inked and the tissue is sectioned perpendicular to the margin and submitted in its entirely in cassette C1. (TSD; 06/06/2018) [place] [address] PATHOLOGY RPT PROCEDURE Name: NIDA ARANA T Room #: REG CLI Yesenia#: [id number] ������������������ Admission: 06/06/18 ������������������ Date of : 39 Discharge: Report #: [id number] Path Case #: [id number] TOB/TOB . 02 Pathologist provided ICD-10: K63.5, D12.2, D12.6 . 02 CPT . 683803, 557763, 207891 Specimen Comment: A courtesy copy of this report has been sent to Specimen Comment: [phone], . Specimen Comment: Report sent to / DR ZALDIVAR Performed at: [address], [place], [place] [id number] MD Emile Riddle MD Phone: [phone] Performed at: [address] [id number] MD Penny Sherman MD Phone: [phone]
== END | disposition home or self-care (01) ==
LOC: GI 05-29 13:45
DX: Z08 Encounter for follow-up examination after completed treatment for malignant neoplasm (principal); Z85.038 Personal history of other malignant neoplasm of large intestine; D12.2 Benign neoplasm of ascending colon; D12.5 Benign neoplasm of sigmoid colon; K63.5 Polyp of colon; I12.9 Hypertensive chronic kidney disease with stage 1 through stage 4 chronic kidney disease, or unspecified chronic kidney disease; N18.3 Chronic kidney disease, stage 3 (moderate); N40.0 Benign prostatic hyperplasia without lower urinary tract symptoms; Z98.0 Intestinal bypass and anastomosis status; Z79.01 Long term (current) use of anticoagulants; Z79.82 Long term (current) use of aspirin; Z85.05 Personal history of malignant neoplasm of liver; Z85.46 Personal history of malignant neoplasm of prostate; Z86.2 Personal history of diseases of the blood and blood-forming organs and certain disorders involving the immune mechanism; Z79.899 Other long term (current) drug therapy; Z98.890 Other specified postprocedural states
CPT/HCPCS: 62110; 62900

== ENCOUNTER → 2019-11-23 | Outpatient (CLI) | payer OTHER | LOC: SJCVCIMAG 07:23 | PROVIDERS: ATTEND Internal Medicine | DX: I08.8 Other rheumatic multiple valve diseases (principal); I49.3 Ventricular premature depolarization; E78.5 Hyperlipidemia, unspecified; I10 Essential (primary) hypertension; Z79.899 Other long term (current) drug therapy ==

== ENCOUNTER 2019-12-24 11:32 | Emergency (ER) | payer OTHER ==
[~2019-12-24] VITALS: Ht 170.2 cm; Wt 93.0 kg
[2019-12-24 12:27] VITALS: BP 169/88
== END 2019-12-24 12:42 | disposition home or self-care (01) ==
LOC: ER 11:32
DX: L02.412 Cutaneous abscess of left axilla (principal); E78.5 Hyperlipidemia, unspecified; I12.9 Hypertensive chronic kidney disease with stage 1 through stage 4 chronic kidney disease, or unspecified chronic kidney disease; N18.30 Chronic kidney disease, stage 3 unspecified; Z85.038 Personal history of other malignant neoplasm of large intestine; Z85.05 Personal history of malignant neoplasm of liver; Z79.899 Other long term (current) drug therapy; Z79.82 Long term (current) use of aspirin

== ENCOUNTER → 2020-08-08 | Outpatient (CLI) | payer OTHER ==
[~2020-08-08] VITALS: Ht 170.2 cm; Wt 93.4 kg
--- NOTE | 2020-08-11 17:07 | PATH ---
[facility] [address] [address] PATHOLOGY RPT PROCEDURE Name: NIDA ARANA Room #: REG [facility] M.Evan.#: [id number] Admission: 08/08/20 Date of : 39 Discharge: Report #: [id number] Path Case #: [id number] [facility] Accession Number: [id number] . 01 Material submitted: . sigmoid colon - SIGMOID COLON POLYP . 01 Clinical history: . COLONOSCOPY SCREENING HX OF CRC . 02 Diagnosis: Polyp, sigmoid colon polyp, endoscopic biopsy: - Tubular adenoma. - Negative for high grade dysplasia. . (IUV:mml; 08/11/2020) [facility] 08/11/2020 1526 Local . 02 Electronically signed: . Penny Sherman MD, Pathologist NPI- [id number] . 01 Gross description: . Received in formalin labeled "Nida Arana, sigmoid colon polyp" is a dorsey-brown soft tissue fragment measuring in 0.3 x 0.2 x 0.1 cm. The specimen is submitted entirely in A1. (HONORIO; 08/10/2020) HONORIO/HONORIO 08/10/2020 1807 Local . 02 Pathologist provided ICD-10: D12.5 . 02 CPT . 768841 Specimen Comment: A courtesy copy of this report has been sent to [phone] Specimen Comment: [phone] Specimen Comment: Report sent to / DR ZALDIVAR Performed at: [address], [place] [id number] MD Clarence Noel MD Phone: [phone] Performed at: [address] [id number] MD Penny Sherman MD Phone: [phone]
== END | disposition home or self-care (01) ==
LOC: CATH 12-02 08:55 → GI 08:06
PROVIDERS: ATTEND Internal Medicine Gastroenterology
DX: Z12.11 Encounter for screening for malignant neoplasm of colon (principal); Z85.038 Personal history of other malignant neoplasm of large intestine; K63.5 Polyp of colon; I13.0 Hypertensive heart and chronic kidney disease with heart failure and stage 1 through stage 4 chronic kidney disease, or unspecified chronic kidney disease; N18.30 Chronic kidney disease, stage 3 unspecified; I50.30 Unspecified diastolic (congestive) heart failure; E78.5 Hyperlipidemia, unspecified; N40.0 Benign prostatic hyperplasia without lower urinary tract symptoms; Z98.890 Other specified postprocedural states; Z79.899 Other long term (current) drug therapy; Z85.46 Personal history of malignant neoplasm of prostate; Z98.0 Intestinal bypass and anastomosis status; Z85.05 Personal history of malignant neoplasm of liver; Z86.711 Personal history of pulmonary embolism; Z79.01 Long term (current) use of anticoagulants; Z86.718 Personal history of other venous thrombosis and embolism
CPT/HCPCS: 62110; 62900